=== PATIENT | male | born 1960 | race Caucasian/White ===

== ENCOUNTER 2019-01-23 02:36 | Emergency (ER) | payer SELFPAY ==
[~2019-01-23] VITALS: Ht 160 cm; Wt 80.5 kg
[2019-01-23 02:59] VITALS: BP 132/78; PULSE 69; TEMP 98.1
[2019-01-23] MEDS ORDERED: TORADOL 10MG TA10 MG PO (04:12)
[2019-01-23] MEDS ORDERED: CYMBALTA 60MG60 MG PO (04:13)
[2019-01-23] MEDS ORDERED: LYRICA 75MG CAP75 MG PO (04:13)
== END 2019-01-23 05:04 | disposition home or self-care (01) ==
LOC: COL.ER 02:36
DX: S70.01XA Contusion of right hip, initial encounter (principal); G89.29 Other chronic pain; W18.39XA Other fall on same level, initial encounter
CPT/HCPCS: J1885